=== PATIENT | female | born 1980 | race Caucasian/White ===

== ENCOUNTER 2019-09-20 00:25 | Inpatient (IN) | payer MEDICAID, OTHER ==
[~2019-09-20 00:25] MED LIST: Acetaminophen 325 MG Tab PO PRN; Carboprost Tromethamine 250 MCG/1 ML Amp IM PRN; Lactated Ringers 1,000 ML IV ONE; Lidocaine 1% 30 ML SDV INJECT PRN; Methylergonovine 0.2 MG/1 ML Amp IM PRN; Misoprostol 25 MCG (1/4 of 100 MCG) Tab PO PRN; Misoprostol 400 MCG (4 X 100 MCG TAB) RECTAL PRN; Ondansetron 4 MG/2 ML SDV IVPUSH PRN; Oxytocin/Normal Saline 30 UNIT/500 ML BAG IV SCH; Sodium Chloride 0.9% 10 ML Syringe FLUSH PRN; Tranexamic Acid 1,000 MG in Sodium Chloride 0.9% 100 ML IV PRN
[2019-09-20] MEDS: Misoprostol 25 MCG (1/4 of 100 MCG) Tab VAG PRN ×2 (01:30→05:36)
[2019-09-20] MEDS: Lactated Ringers 1,000 ML IV SCH ×4 (01:36→18:15)
[2019-09-20] MEDS ORDERED: fentaNYL 100 MCG/2 ML SDV IVPUSH PRN (14:01)
[2019-09-20] MEDS ORDERED: fentaNYL 100 MCG/2 ML SDV ONE (15:20)
[2019-09-20] MEDS ORDERED: EPINEPHrine 1 MG/1 ML Amp ONE (15:21)
--- NOTE | 2019-09-20 15:55 | PCM.PRNOTE ---
- Free Text/Narrative Note: Requested to provide analgesia to full term patient in severe pain. Upon entering the room, patient is sitting on edge of bed complaining of severe abdominal/pelvic pain and discomfort. Procedure was discussed with patient including adverse outcomes and expectations. Pt consented to analgesia, SAB/IT. Pt placed into a proper sitting position. Landmarks for SAB/IT were identified and marked. Hands were washed and appropriate PPE was applied. Back was prepped with betadine x3. A sterile, transparent, fenestrated drape was applied. Excess betadine was removed. Using 3 mL of a 1% lidocaine solution, a skin wheel was placed at the L2/L3 interspace. A 24 ga (4 inch) Pencan spinal needle was inserted until positive for CSF. Negative for heme or paresthesias. Injected fentanyl 20 mcg, sufentanil 25 mcg, and 7.5 mg of a 0.75% bupivacaine solution with an epi wash. Pt was placed left lateral position for approximately 20 minutes. There were zero complications or adverse outcomes. Will continue to monitor. Procedure Date & Time: 09/20/19 [id number]
--- NOTE | 2019-09-20 16:03 | OBOUT ---
DATE: 09/20/2019 TIME: 00:40 to 01:00. REASON FOR NST: 1. Intrauterine at 37 and 2/7 weeks, confirmed with 14 and 3/7 weeks ultrasound. 2. Chronic hypertension, on medications. 3. Gestational diabetes mellitus, on medications. 4. GBS positive with multiple antibiotic allergies. We will be using vancomycin. 5. Advanced maternal age. 6. History of preeclampsia in previous . 7. History of asthma in distant past. 8. G5, P4-0-0-4. NST INTERPRETATION: During this time period, heart tone baseline was approximately 140, and at least two 15 x 15 beats per minute accelerations making this strip reactive as well as reassuring. Tocometer reveals no evidence of contractions. Blood pressure 116/68, heart rate 91, temperature 97.3. ASSESSMENT: 1. Nonstress test - reactive and reassuring. 2. Tocometer without contractions. PLAN: Cytotec to be placed shortly thereafter. We will continue to follow clinically and closely. Please see H and P done through [facility] as well for this. Review of systems fully reviewed and felt to be contributory as noted. Also as noted, her blood sugars were under control upon admission as well. [facility] /[id number]
--- NOTE | 2019-09-20 16:12 | PN ---
DATE: 09/20/2019 SUBJECTIVE: The patient is now status post Cytotec x2. She is feeling her contractions. Described as mild, coming on every 2 to 2-1/2 minutes. OBJECTIVE: heart tones in the 130s to 140s range, felt to be reassuring. Tocometer reveals contractions every 2 to 2-1/2 minutes. Vaginal exam reveals her to be 2 cm, 60% effaced, -1 to -2 station. Vertex suspected, and artificial rupture of membranes done after discussion with the patient yielding copious amounts of clear fluid. ASSESSMENT AND PLAN: Intrauterine at 37 and 2/7 weeks, complicated by chronic hypertension, on meds, gestational diabetes mellitus requiring meds. GBS positive status. Now status post vancomycin x1 at approximately 1:30 a.m., due for one at 1:30 this afternoon with advanced maternal age in a G5, P4-0-0-4, now status post Cytotec x2 and artificial rupture of membranes as above. We will continue to follow clinically and closely. Plans were discussed with the patient. She understands and agrees. [facility] /[id number]
[2019-09-20] MEDS ORDERED: Benzocaine/Menthol 20%-0.5% Spray 56 GM Canister TOP PRN (18:20)
[2019-09-20] MEDS ORDERED: Simethicone 80 MG Tab.Chew PO PRN (18:20)
[2019-09-20] MEDS ORDERED: Sodium Chloride 0.9% 10 ML Syringe FLUSH PRN (18:20)
[2019-09-20] MEDS ORDERED: Oxytocin 10 Units/1 ML SDV IM PRN (18:20)
[2019-09-20] MEDS ORDERED: Zolpidem 5 MG Tab PO PRN (18:20)
[2019-09-20] MEDS: Docusate Sodium 100 MG Cap PO PRN (20:06)
[2019-09-20] MEDS: Ibuprofen 800 MG Tab PO PRN (20:06)
[2019-09-21] MEDS: Ibuprofen 800 MG Tab PO PRN ×2 (03:52→16:33)
[2019-09-21] MEDS: Acetaminophen 325 MG Tab PO PRN ×3 (03:52→21:02)
--- NOTE | 2019-09-21 05:29 | PN ---
DATE: 09/21/2019 Post day #1. SUBJECTIVE: The patient is tolerating p.o., is ambulating, urinating. Pain is under control. Bleeding has decreased. OBJECTIVE: Vital Signs: Temperature 98.2, heart rate 78, blood pressure 116/58, respiratory rate 18. Lungs: Clear to auscultation bilaterally. Heart: S1, S2. Regular rate and rhythm. Genitourinary: Firm uterus. -1 below umbilicus. Extremities: Trace pedal edema. No calf pain. Pending is a CBC later this morning. ASSESSMENT AND PLAN: day #1, status post spontaneous vaginal delivery, first-degree perineal laceration, repaired with complicated by chronic hypertension, on medications. Gestational diabetes mellitus, on meds. Advanced maternal age. At this point in time, we will continue to follow clinically and closely. Possible discharge tomorrow discussed. We will follow if there are any concerns with the blood count today. No symptoms were elicited however. [facility] /[id number]
[2019-09-21] MEDS: Docusate Sodium 100 MG Cap PO PRN ×2 (09:29→21:03)
[2019-09-21] MEDS: Prenatal Multivitamin with Calcium/Folic Acid/Iron Tab PO SCH (09:29)
[2019-09-21] MEDS: Ferrous Sulfate 325 MG Tab PO SCH (09:29)
--- NOTE | 2019-09-21 11:17 | DEL ---
DATE: 09/20/2019 PREOPERATIVE DIAGNOSES: 1. Intrauterine 37-2/7 weeks, confirmed with 14-3/7-week ultrasound. 2. Chronic hypertension, on medications. 3. Gestational diabetes mellitus, on medications, questionable control. 4. Group B Streptococcus positive with multiple antibiotic allergies, given vancomycin for her group B Streptococcus positive status. 5. Advanced maternal age. 6. History of preeclampsia in previous . 7. History of asthma in distant past. 8. G5, P4-0-0-4. POSTOPERATIVE DIAGNOSES: 1. Intrauterine 37-2/7 weeks, confirmed with 14-3/7-week ultrasound - delivered. 2. Chronic hypertension, on medications. 3. Gestational diabetes mellitus, on medications, questionable control. 4. Group B Streptococcus positive with multiple antibiotic allergies, given vancomycin for her group B Streptococcus positive status. 5. Advanced maternal age. 6. History of preeclampsia in previous . 7. History of asthma in distant past. 8. G5, P4-0-0-4. 9. First-degree perineal uemltemsyz-[id number]-[id number]. 10.True cord knot. PROCEDURES PERFORMED: NST, Cytotec x2, artificial rupture of membranes, Pitocin augmentation, and spontaneous vaginal delivery with first-degree perineal laceration, repaired, on 09/20/2019. Procedure performed by Carl Nagel MD. ANESTHESIA/ANALGESIA: The patient did receive an intrathecal in the first stage of labor. Fentanyl was also given prior to this. ESTIMATED BLOOD LOSS: 200 mL. FINDINGS: Female, scores and weight pending. SUMMARY OF EVENTS: The patient is a 39-year-old, G5, P4-0-0-4, intrauterine at 37-2/7 weeks, confirmed with 14-3/7-week ultrasound, presented for induction of labor due to her medical conditions as above. She underwent NST, followed by Cytotec x2, then artificial rupture of membranes and then required Pitocin augmentation. She progressed through labor, was requesting pain medications, was given fentanyl initially and then was given an intrathecal. I was called to the room, as she was found to be in the 2nd stage of labor. Upon my entry, I donned sterile gown and gloves, as requested Mosher catheter was placed into the bladder and drained [id number] colored urine. This was subsequently removed and done under sterile conditions. Subsequently, the patient started pushing with contractions, and vertex was delivered in a MAYDA presentation, followed by anterior and posterior shoulders, as well as rest of the infant without difficulty. Mouth and nares were suctioned. Cord was doubly clamped and cut, and was resuscitated on mother's abdomen. Approximately 10 mL cord blood was obtained for labs. Placenta then delivered with gentle cord traction and fundal massage within 10 minutes. Perineum, vagina, and perirectal areas were examined and noted to have a first- degree perineal laceration that was bleeding and was repaired using 3-0 Vicryl in usual fashion and hemostasis reassured. No other tears or lacerations noted. Mother and are currently stable at the time of dictation. [facility] /[id number]
[2019-09-21] MEDS ORDERED: EPINEPHrine 1 MG/1 ML Amp ONE (14:34)
[2019-09-21] MEDS ORDERED: fentaNYL 100 MCG/2 ML SDV ITHECAL ONE (14:34)
[2019-09-22] MEDS: Ferrous Sulfate 325 MG Tab PO SCH (08:24)
[2019-09-22] MEDS: Prenatal Multivitamin with Calcium/Folic Acid/Iron Tab PO SCH (08:24)
--- NOTE | 2019-09-22 12:19 | DISCH ---
ADMITTING DIAGNOSES: 1. Intrauterine at 37-2/7 weeks, confirmed with 14-3/7 week ultrasound. 2. Chronic hypertension, on medications. 3. Gestational diabetes mellitus, on medications, questionable control. 4. Group B streptococcus positive. Multiple antibiotic allergies, will need vancomycin. 5. Advanced maternal age. 6. History of preeclampsia in previous . 7. History of asthma in distant past. 8. G5, P4-0-0-4. DISCHARGE DIAGNOSES: 1. Intrauterine at 37-2/7 weeks, confirmed with 14-3/7 week ultrasound - delivered. 2. Chronic hypertension, on medications. 3. Gestational diabetes mellitus, on medications, questionable control. 4. Group B streptococcus positive. Multiple antibiotic allergies, will need vancomycin. 5. Advanced maternal age. 6. History of preeclampsia in previous . 7. History of asthma in distant past. 8. G5, P4-0-0-4. 9. First-degree perineal laceration - bleeding - repaired. 10.True cord knot. 11.Anemia of acute blood loss. Hemoglobin dropping from 10.5 to 9.5, asymptomatic, and we will treat with iron as an outpatient. PROCEDURES PERFORMED: 1. Nonstress test. 2. Cytotec x2. 3. Artificial rupture membranes. 4. Pitocin augmentation and spontaneous vaginal delivery. 5. First-degree perineal laceration repaired on 09/20/[address] Nagel. HISTORY OF PRESENT ILLNESS: Please see H and P. SUMMARY OF HOSPITAL COURSE: The patient is admitted on the above date with the above diagnoses. Underwent Cytotec x2, artificial rupture of membranes, Pitocin augmentation, and then went on to have spontaneous vaginal delivery yielding a female with scores of 7 and 9, weighing 3420 g (7 pounds 9 ounces) with a first-degree perineal laceration that was bleeding and repaired and true cord knot. Please see delivery note for further details. day #1, please see progress note. day #2, date of discharge. The patient was tolerating p.o., ambulating, urinating, passing flatus, and requesting discharge with her baby needing to stay for phototherapy and she plans on rooming in. OBJECTIVE: Vital Signs: Temperature 98, heart rate 70 to 74, respiratory rate 16, and blood pressure 118/65. Lungs: Clear to auscultation bilaterally. Heart: S1, S2. Regular rate and rhythm. Abdomen: Firm uterus, -1 below umbilicus with obesity noted. Extremities: Trace pedal edema. CONDITION ON DISCHARGE COMPARED TO CONDITION ON ADMISSION: Improved. DISCHARGE INSTRUCTIONS: 1. Diet: As tolerated. 2. Activity: No lifting more than 20 pounds. No sit-ups or straining and pelvic rest for next 6 weeks with immediate return to fertility discussed with the patient. 3. Reason to return or go to the emergency room discussed with patient in detail including but not limited to temperature greater than 100.4, foul- smelling discharge, red hot tender breasts, or increased vaginal bleeding. DISCHARGE MEDICATIONS: 1. Ksta-lgz-eabhdgo Tylenol or ibuprofen for pain. 2. Iron sulfate 325 b.i.d. x6 weeks, dispensed q.s., no refills. 3. Colace 100 mg b.i.d. p.r.n. #60, no refills. 4. Hydrochlorothiazide as previously taken. Her blood pressures are stable at this point in time. We will continue to follow clinically and closely. The patient is considering bottle feeding at this point in time. FOLLOWUP: 6 weeks . The patient understands and agrees with the above treatment plan. Please see discharge paperwork for further details as well. [facility] /[id number]
== END 2019-09-22 12:00 | disposition home or self-care (01) | DRG 806 ==
LOC: DL.OBCHECK 00:25 → DL.OB 00:26 → OBSVTOIN 18:02 → DL.OB 18:02
PROVIDERS: ADMIT Family Medicine; ATTEND Family Medicine
PROC: 10E0XZZ Delivery of Products of Conception, External Approach (ICD-10-PCS; principal; 2019-09-20)
PROC: 10907ZC Drainage of Amniotic Fluid, Therapeutic from Products of Conception, Via Natural or Artificial Opening (ICD-10-PCS; 2019-09-20)
PROC: 0HQ9XZZ Repair Perineum Skin, External Approach (ICD-10-PCS; 2019-09-20)
PROC: 3E0R3BZ Introduction of Anesthetic Agent into Spinal Canal, Percutaneous Approach (ICD-10-PCS; 2019-09-20)
PROC: 00HU33Z Insertion of Infusion Device into Spinal Canal, Percutaneous Approach (ICD-10-PCS; 2019-09-20)
DX: O99.824 Streptococcus B carrier state complicating childbirth (principal); D62 Acute posthemorrhagic anemia; Z37.0 Single live birth; O24.429 Gestational diabetes mellitus in childbirth, unspecified control; O99.02 Anemia complicating childbirth; O16.4 Unspecified maternal hypertension, complicating childbirth; O70.0 First degree perineal laceration during delivery; Z11.59 Encounter for screening for other viral diseases; O69.2XX0 Labor and delivery complicated by other cord entanglement, with compression, not applicable or unspecified; Z3A.37 37 weeks gestation of pregnancy; Z28.82 Immunization not carried out because of caregiver refusal
CPT/HCPCS: 01967; 36415; 51701; 59025; 59409; 82962; 85027; A9270-GY; J0171; J2405; J2590; J3010; J3370; J7050; J7120; U0002